=== PATIENT | female | born 2000 | race Caucasian/White ===

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

== ENCOUNTER 2022-04-09 14:51 | Emergency (ER) | payer MEDICAID ==
[2022-04-09] MEDS ORDERED: Ketorolac 30 MG/ML SDV IVPUSH ONE (15:27)
[2022-04-09] MEDS ORDERED: Sodium Chloride 0.9% 1,000 ML IV ONE (15:27)
[2022-04-09] MEDS ORDERED: Sodium Chloride 0.9% 10 ML Syringe FLUSH PRN (15:27)
[2022-04-09] MEDS ORDERED: Sodium Chloride 0.9% 2.5 ML Syringe FLUSH PRN (15:27)
[2022-04-09] MEDS ORDERED: Acetaminophen 500 MG Tab PO ONE (15:27)
[2022-04-09 16:00] LABS: BLOOD UREA NITROGEN,BUN 9 mg/dL (7.0-18.0); CARBON DIOXIDE,CO2 23.8 mmol/L (21.0-32.0); CHLORIDE,CL 93 mmol/L (98-107); GLUCOSE RANDOM 88 mg/dL (74-106); POTASSIUM,K 3.6 mmol/L (3.5-5.1); SODIUM,NA 131 mmol/L (136-145)
[2022-04-09] MEDS ORDERED: cefTRIAXone 1 GM in Sodium Chloride 0.9% 50 ML IV ONE (16:46)
[2022-04-09] MEDS ORDERED: Azithromycin 250 MG Tab PO ONE (16:46)
== END 2022-04-09 17:44 | disposition home or self-care (01) ==
LOC: MW.ED 14:51
DX: J18.9 Pneumonia, unspecified organism (principal)
CPT/HCPCS: 36415; 71046; 80053; 81003; 81025; 83605; 85025; 87040; 93005; 96365; 96375; 99284; A9270; J0696; J1885; J3490; J7030

== ENCOUNTER 2022-10-21 17:35 | Emergency (ER) | payer MEDICAID ==
[2022-10-21] MEDS ORDERED: Ondansetron 4 MG/2 ML SDV IVPUSH ONE (18:19)
[2022-10-21] MEDS ORDERED: Sodium Chloride 0.9% 2.5 ML Syringe FLUSH PRN (18:19)
[2022-10-21] MEDS ORDERED: Sodium Chloride 0.9% 1,000 ML IV ONE (18:19)
[2022-10-21] MEDS ORDERED: Sodium Chloride 0.9% 10 ML Syringe FLUSH PRN (18:19)
[2022-10-21] MEDS ORDERED: Ketorolac 30 MG/ML SDV IVPUSH ONE (19:12)
[2022-10-21 19:20] LABS: CARBON DIOXIDE,CO2 27.7 mmol/L (21.0-32.0); POTASSIUM,K 3.7 mmol/L (3.5-5.1)
[2022-10-21] MEDS ORDERED: Iopamidol 755 MG/ML 500 ML Multipack Bottle IVPUSH STA (19:59)
[2022-10-21] MEDS ORDERED: Acetaminophen 325 MG Tab PO ONE (20:56)
== END 2022-10-21 22:40 | disposition home or self-care (01) ==
LOC: MW.ED 17:35
DX: N83.201 Unspecified ovarian cyst, right side (principal); Z20.822 Contact with and (suspected) exposure to COVID-19
CPT/HCPCS: 36415; 74177; 76830; 80053; 81003; 81025; 83690; 85025; 87635; 96361; 96374; 96375; 99284; A9270; J1885; J2405; J3490; J7030; Q9967; U0002

== ENCOUNTER 2023-09-15 16:46 | Emergency (ER) | payer MEDICAID ==
[2023-09-15 17:10] LABS: BASOPHILS ABSOLUTE AUTO 0.03 K/uL (0.00-0.20); BASOPHILS PERCENT AUTO 0.7 % (0.0-1.0); EOSINOPHILS ABSOLUTE AUTO 0.01 K/uL (0.00-0.45); EOSINOPHILS PERCENT AUTO 0.2 % (0.0-6.0); HEMATOCRIT 34.8 % (37.0-47.0); HEMOGLOBIN 11.5 g/dL (12.0-16.0); IMMATURE GRAN ABSOLUTE AUTO 0.01 K/uL (0.00-0.05); IMMATURE GRAN PERCENT AUTO 0.2 % (0.0-0.4); LYMPHOCYTES ABSOLUTE AUTO 1.37 K/uL (1.00-4.80); LYMPHOCYTES PERCENT AUTO 33.8 % (24.0-44.0); MEAN CORPUSCULAR HEMOGLOBIN 26.6 pg (28.0-32.0); MEAN CORPUSCULAR VOLUME 80.4 fL (83.0-99.0); MEAN PLATELET VOLUME 10.3 fL (9.4-12.3); MONOCYTES ABSOLUTE AUTO 0.28 K/uL (0.00-0.80); MONOCYTES PERCENT AUTO 6.9 % (0.0-8.0); NEUTROPHILS ABSOLUTE AUTO 2.35 K/uL (1.80-7.70); NEUTROPHILS PERCENT AUTO 58.2 % (41.0-71.0); PLATELET COUNT,PLT 219 K/uL (150-400); RED BLOOD CELL COUNT 4.33 M/uL (4.10-5.30); WHITE BLOOD CELL COUNT,WBC 4.05 K/uL (3.9-11.3)
[2023-09-15 17:22] LABS: A/G RATIO 1.1 (0.9-1.6); ALANINE AMINOTRANSFERASE,ALT 27 IU/L (14-63); ALBUMIN 4.2 g/dL (3.4-5.0); ALKALINE PHOSPHATASE 57 U/L (46-116); ASPARTATE AMNIOTRANSFERASE,AST 16 IU/L (15-37); BILIRUBIN TOTAL 0.3 mg/dL (0.2-1.0); BLOOD UREA NITROGEN,BUN 10 mg/dL (7.0-18.0); CALCIUM 8.8 mg/dL (8.5-10.1); CARBON DIOXIDE,CO2 24.9 mmol/L (21.0-32.0); CHLORIDE,CL 103 mmol/L (98-107); CREATININE 0.9 mg/dL (0.6-1.0); EST CRCL DRUG DOSING (CG) 94.44 mL/min; GLUCOSE RANDOM 103 mg/dL (74-106); POTASSIUM,K 3.5 mmol/L (3.5-5.1); PROTEIN TOTAL,TP 7.9 g/dL (6.4-8.2); SODIUM,NA 137 mmol/L (136-145)
[2023-09-15 17:23] LABS: ESTIMATED GFR 94 mL/min (>60)
[2023-09-15 18:54] LABS: APPEARANCE,URINE CLEAR; BILIRUBIN,URINE NEGATIVE (NEGATIVE); COLOR,URINE YELLOW; GLUCOSE,URINE NEGATIVE (NEGATIVE); KETONES,URINE NEGATIVE (NEGATIVE); LEUKOCYTE ESTERASE,URINE NEGATIVE (NEGATIVE); NITRITE,URINE NEGATIVE (NEGATIVE); OCCULT BLOOD,URINE NEGATIVE (NEGATIVE); PROTEIN,URINE NEGATIVE (NEGATIVE); UROBILINOGEN,URINE 0.2 EU/dL (<2.0)
== END 2023-09-15 19:20 | disposition home or self-care (01) ==
LOC: MW.ED 16:46
DX: R00.2 Palpitations (principal); R07.89 Other chest pain; Z86.16 Personal history of COVID-19
CPT/HCPCS: 36415; 71045; 71045-26; 80053; 81003; 84484; 85025; 93005; 93010; 99283; 99285

== ENCOUNTER 2024-06-19 21:40 | Emergency (ER) | payer BC ==
[2024-06-19] MEDS: Sodium Chloride 0.9% 1,000 ML IV STA ×2 (22:09→23:16)
[2024-06-19] MEDS: Ondansetron 4 MG/2 ML SDV IVPUSH STA (22:09)
[2024-06-19 22:18] LABS: APPEARANCE,URINE CLEAR; BILIRUBIN,URINE NEGATIVE (NEGATIVE); COLOR,URINE YELLOW; GLUCOSE,URINE NEGATIVE (NEGATIVE); KETONES,URINE TRACE mg/dL (NEGATIVE); LEUKOCYTE ESTERASE,URINE NEGATIVE (NEGATIVE); NITRITE,URINE NEGATIVE (NEGATIVE); OCCULT BLOOD,URINE NEGATIVE (NEGATIVE); PROTEIN,URINE TRACE mg/dL (NEGATIVE)
[2024-06-19 22:20] LABS: BASOPHILS ABSOLUTE AUTO 0.01 K/uL (0.00-0.20); BASOPHILS PERCENT AUTO 0.2 % (0.0-1.0); EOSINOPHILS ABSOLUTE AUTO 0.01 K/uL (0.00-0.45); EOSINOPHILS PERCENT AUTO 0.2 % (0.0-6.0); HEMATOCRIT 35.5 % (37.0-47.0); HEMOGLOBIN 11.9 g/dL (12.0-16.0); LYMPHOCYTES ABSOLUTE AUTO 0.92 K/uL (1.00-4.80); LYMPHOCYTES PERCENT AUTO 16.3 % (24.0-44.0); MEAN CORPUSCULAR HGB CONC 33.5 g/dL (32.0-36.0); MEAN CORPUSCULAR VOLUME 77.7 fL (83.0-99.0); MEAN PLATELET VOLUME 10.1 fL (9.4-12.3); MONOCYTES ABSOLUTE AUTO 0.26 K/uL (0.00-0.80); MONOCYTES PERCENT AUTO 4.6 % (0.0-8.0); NEUTROPHILS ABSOLUTE AUTO 4.43 K/uL (1.80-7.70); NEUTROPHILS PERCENT AUTO 78.7 % (41.0-71.0); PLATELET COUNT,PLT 253 K/uL (150-400); RED BLOOD CELL COUNT 4.57 M/uL (4.10-5.30); WHITE BLOOD CELL COUNT,WBC 5.63 K/uL (3.9-11.3)
[2024-06-19 22:43] LABS: ALBUMIN 3.7 g/dL (3.4-5.0); BILIRUBIN TOTAL 0.3 mg/dL (0.2-1.0); CARBON DIOXIDE,CO2 20.4 mmol/L (21.0-32.0); CREATININE 0.7 mg/dL (0.6-1.0); EST CRCL DRUG DOSING (CG) 122.89 mL/min; POTASSIUM,K 3.6 mmol/L (3.5-5.1); PROTEIN TOTAL,TP 7.3 g/dL (6.4-8.2)
[2024-06-19 22:51] LABS: TSH ULTRASENSITIVE 0.94 uIU/mL (0.36-3.74)
[2024-06-19 22:59] LABS: BACTERIA,URINE FEW (NEGATIVE); EPITHELIAL CELLS,URINE RARE (NONE-FEW); MUCUS,URINE FEW (NONE-MOD); RBC,URINE 0-1 (0-2/HPF); WBC,URINE 0-2 (0-5/HPF)
[2024-06-19 23:18] LABS: D-DIMER QUANTITATIVE 0.38 mg/L FEU (0.00-0.50); INR 0.99 (0.86-1.11); PTT,PARTIAL THROMBOPLSTIN TIME 27.2 SEC (23.9-30.7)
[2024-06-20] MEDS: Magnesium Sulfate/Water 2 GM in Premix Bag 1 BAG IV STA (01:38)
== END 2024-06-20 03:20 ==
LOC: MW.ED 21:40
DX: O99.411 Diseases of the circulatory system complicating pregnancy, first trimester (principal); I21.A1 Myocardial infarction type 2; O99.281 Endocrine, nutritional and metabolic diseases complicating pregnancy, first trimester; E83.42 Hypomagnesemia; Z86.16 Personal history of COVID-19; Z75.8 Other problems related to medical facilities and other health care; Z3A.13 13 weeks gestation of pregnancy
CPT/HCPCS: 36415; 80053; 81001; 81025; 83735; 84443; 84484; 85025; 85379; 85610; 85730; 93005; 96361; 96365; 96375; 99285; J2405; J3475; J7030; 93010

== ENCOUNTER 2024-07-13 11:22 | Emergency (ER) | payer BC ==
[2024-07-13 11:45] LABS: BASOPHILS ABSOLUTE AUTO 0.01 K/uL (0.00-0.20); BASOPHILS PERCENT AUTO 0.2 % (0.0-1.0); EOSINOPHILS ABSOLUTE AUTO 0.02 K/uL (0.00-0.45); EOSINOPHILS PERCENT AUTO 0.4 % (0.0-6.0); HEMATOCRIT 32.5 % (37.0-47.0); HEMOGLOBIN 10.7 g/dL (12.0-16.0); IMMATURE GRAN ABSOLUTE AUTO 0.01 K/uL (0.00-0.05); IMMATURE GRAN PERCENT AUTO 0.2 % (0.0-0.4); LYMPHOCYTES ABSOLUTE AUTO 0.74 K/uL (1.00-4.80); MEAN CORPUSCULAR HEMOGLOBIN 26.2 pg (28.0-32.0); MEAN CORPUSCULAR HGB CONC 32.9 g/dL (32.0-36.0); MEAN CORPUSCULAR VOLUME 79.7 fL (83.0-99.0); MEAN PLATELET VOLUME 9.5 fL (9.4-12.3); MONOCYTES ABSOLUTE AUTO 0.31 K/uL (0.00-0.80); MONOCYTES PERCENT AUTO 5.9 % (0.0-8.0); NEUTROPHILS ABSOLUTE AUTO 4.18 K/uL (1.80-7.70); NEUTROPHILS PERCENT AUTO 79.3 % (41.0-71.0); PLATELET COUNT,PLT 230 K/uL (150-400); RED BLOOD CELL COUNT 4.08 M/uL (4.10-5.30); WHITE BLOOD CELL COUNT,WBC 5.27 K/uL (3.9-11.3)
[2024-07-13] MEDS: Sodium Chloride 0.9% 1,000 ML IV STA (11:47)
[2024-07-13 11:57] LABS: INR 0.97 (0.86-1.11); PTT,PARTIAL THROMBOPLSTIN TIME 25.7 SEC (23.9-30.7)
[2024-07-13 12:15] LABS: A/G RATIO 0.9 (0.9-1.6); ALBUMIN 3.2 g/dL (3.4-5.0); BILIRUBIN TOTAL 0.3 mg/dL (0.2-1.0); CALCIUM 8.6 mg/dL (8.5-10.1); CARBON DIOXIDE,CO2 24.7 mmol/L (21.0-32.0); CREATININE 0.7 mg/dL (0.6-1.0); EST CRCL DRUG DOSING (CG) 123.63 mL/min; PROTEIN TOTAL,TP 6.8 g/dL (6.4-8.2)
[2024-07-13 12:26] LABS: MAGNESIUM 1.6 mg/dL (1.8-2.4); PRO B-TYPE NATRIUR PEPT,BNPPRO 77 pg/mL (0-125); TSH ULTRASENSITIVE 0.96 uIU/mL (0.36-3.74)
[2024-07-13] MEDS: Magnesium Sulfate/Water 2 GM in Premix Bag 1 BAG IV STA (13:04)
[2024-07-13 13:10] LABS: APPEARANCE,URINE CLEAR; BILIRUBIN,URINE NEGATIVE (NEGATIVE); COLOR,URINE YELLOW; GLUCOSE,URINE NEGATIVE (NEGATIVE); KETONES,URINE NEGATIVE (NEGATIVE); LEUKOCYTE ESTERASE,URINE NEGATIVE (NEGATIVE); NITRITE,URINE NEGATIVE (NEGATIVE); OCCULT BLOOD,URINE NEGATIVE (NEGATIVE); PROTEIN,URINE NEGATIVE (NEGATIVE); UROBILINOGEN,URINE 0.2 EU/dL (<2.0)
[2024-07-13 13:42] LABS: CORONAVIRUS COVID-19 NAA NEGATIVE (NEGATIVE); INFLUENZA A NAA NEGATIVE (NEGATIVE); INFLUENZA B NAA NEGATIVE (NEGATIVE); RESPIRATORY SYNCYTIAL VIR NAA NEGATIVE (NEGATIVE)
== END 2024-07-13 14:09 | disposition home or self-care (01) ==
LOC: MW.ED 11:22
DX: O99.891 Other specified diseases and conditions complicating pregnancy (principal); O99.282 Endocrine, nutritional and metabolic diseases complicating pregnancy, second trimester; R00.2 Palpitations; R10.31 Right lower quadrant pain; E83.42 Hypomagnesemia; Z3A.16 16 weeks gestation of pregnancy; Z86.16 Personal history of COVID-19; Z75.8 Other problems related to medical facilities and other health care
CPT/HCPCS: 0241U; 36415; 76810; 80053; 81003; 83735; 83880; 84443; 84484; 85025; 85610; 85730; 93005; 96361; 96365; 99285; J3475; J7030; 93010; 99283

== ENCOUNTER 2024-10-22 17:41 | Emergency (ER) | payer SELFPAY ==
[2024-10-22 18:04] LABS: BASOPHILS ABSOLUTE AUTO 0.01 K/uL (0.00-0.20); BASOPHILS PERCENT AUTO 0.1 % (0.0-1.0); EOSINOPHILS ABSOLUTE AUTO 0.02 K/uL (0.00-0.45); EOSINOPHILS PERCENT AUTO 0.3 % (0.0-6.0); HEMATOCRIT 29.6 % (37.0-47.0); IMMATURE GRAN ABSOLUTE AUTO 0.02 K/uL (0.00-0.05); IMMATURE GRAN PERCENT AUTO 0.3 % (0.0-0.4); LYMPHOCYTES ABSOLUTE AUTO 0.84 K/uL (1.00-4.80); LYMPHOCYTES PERCENT AUTO 12.1 % (24.0-44.0); MEAN CORPUSCULAR HEMOGLOBIN 21.7 pg (28.0-32.0); MEAN CORPUSCULAR HGB CONC 30.4 g/dL (32.0-36.0); MEAN CORPUSCULAR VOLUME 71.3 fL (83.0-99.0); MEAN PLATELET VOLUME 9.7 fL (9.4-12.3); MONOCYTES ABSOLUTE AUTO 0.46 K/uL (0.00-0.80); MONOCYTES PERCENT AUTO 6.6 % (0.0-8.0); NEUTROPHILS PERCENT AUTO 80.6 % (41.0-71.0); PLATELET COUNT,PLT 259 K/uL (150-400); RED BLOOD CELL COUNT 4.15 M/uL (4.10-5.30); WHITE BLOOD CELL COUNT,WBC 6.95 K/uL (3.9-11.3)
[2024-10-22 18:20] LABS: CALCIUM 8.8 mg/dL (8.5-10.1); CARBON DIOXIDE,CO2 25.7 mmol/L (21.0-32.0); CREATININE 0.7 mg/dL (0.6-1.0); EST CRCL DRUG DOSING (CG) 123.63 mL/min; MAGNESIUM 1.7 mg/dL (1.8-2.4); POTASSIUM,K 4.2 mmol/L (3.5-5.1)
[2024-10-22] MEDS: Magnesium Sulfate/Water Premix 2 GM in Premix Bag 1 BAG IV ONE (18:41)
== END 2024-10-22 19:40 | disposition home or self-care (01) ==
LOC: MW.ED 17:41
DX: O99.891 Other specified diseases and conditions complicating pregnancy (principal); R00.2 Palpitations; Z79.899 Other long term (current) drug therapy; Z3A.31 31 weeks gestation of pregnancy
CPT/HCPCS: 36415; 80048; 83735; 85025; 96365; 99284; J3475

== ENCOUNTER 2024-12-18 04:26 | Inpatient (IN) | payer BC ==
[2024-12-18] MEDS ORDERED: Tranexamic Acid in NACL,ISO-OS 1,000 MG in Premix Bag 1 BAG IV PRN (17:47)
[2024-12-18] MEDS ORDERED: Ondansetron 4 MG/2 ML SDV IVPUSH PRN (17:47)
[2024-12-18] MEDS ORDERED: Misoprostol 100 MCG Tab RECTAL PRN (17:47)
[2024-12-18] MEDS ORDERED: Butorphanol 2 MG/ML SDV IVPUSH PRN (17:47)
[2024-12-18] MEDS ORDERED: Sodium Chloride 0.9% 2.5 ML Syringe FLUSH PRN (17:47)
[2024-12-18] MEDS ORDERED: Carboprost Tromethamine 250 MCG/1 mL Vial IM PRN (17:47)
[2024-12-18] MEDS ORDERED: Sodium Chloride 0.9% 10 ML Syringe FLUSH PRN (17:47)
[2024-12-18] MEDS ORDERED: Sodium Chloride 0.9% 20 ML SDV IV PRN (17:47)
[2024-12-18] MEDS ORDERED: Water For Irrigation,Sterile 1,000 ML Container IRR PRN (17:47)
[2024-12-18] MEDS ORDERED: Methylergonovine 0.2 MG/1 ML Amp IM PRN (17:47)
[2024-12-18] MEDS ORDERED: Lidocaine 1% 50 ML MDV INJECT PRN (17:47)
[2024-12-18] MEDS ORDERED: Oxytocin/0.9 % Sodium Chloride 30 UNIT/500 ML BAG IV SCH ×2 (18:00)
[2024-12-18] MEDS: Lactated Ringers 1,000 ML IV SCH (18:32)
[2024-12-18] MEDS: Ampicillin 2 GM in Sodium Chloride 0.9% 100 ML IV ONE (18:32)
[2024-12-18 18:55] LABS: HEMATOCRIT 37.1 % (37.0-47.0); HEMOGLOBIN 12.2 g/dL (12.0-16.0); MEAN CORPUSCULAR HEMOGLOBIN 27.6 pg (28.0-32.0); MEAN CORPUSCULAR HGB CONC 32.9 g/dL (32.0-36.0); MEAN CORPUSCULAR VOLUME 83.9 fL (83.0-99.0); MEAN PLATELET VOLUME 9.6 fL (9.4-12.3); PLATELET COUNT,PLT 237 K/uL (150-400); RED BLOOD CELL COUNT 4.42 M/uL (4.10-5.30); WHITE BLOOD CELL COUNT,WBC 4.59 K/uL (3.9-11.3)
[2024-12-18] MEDS: Ampicillin 1 GM in Sodium Chloride 0.9% 50 ML IV SCH (22:41)
[2024-12-18] MEDS: Misoprostol 25 MCG (1/4 of 100 MCG) Tab VAG PRN (22:54)
[2024-12-18] MEDS: Misoprostol 25 MCG (1/4 of 100 MCG) Tab PO PRN (22:54)
[2024-12-19] MEDS ORDERED: Bupivacaine 0.5% 10 ML SDV ONE ×2 (01:21→03:48)
[2024-12-19] MEDS ORDERED: Phenylephrine HCl In 0.9% NaCl 1 MG/10 ML Syringe ONE ×3 (01:21→04:43)
[2024-12-19] MEDS: Ropivacaine HCl/PF 200 ML ONE (01:40)
[2024-12-19] MEDS ORDERED: Bupivacaine 0.5% 10 ML SDV INJECT ONE (01:51)
[2024-12-19] MEDS ORDERED: Phenylephrine HCl In 0.9% NaCl 1 MG/10 ML Syringe IVPUSH PRN ×2 (01:51→05:38)
[2024-12-19] MEDS ORDERED: ePHEDrine 50 MG/ML SDV IVPUSH PRN (01:51)
[2024-12-19] MEDS ORDERED: dexmedeTOMIDine HCl 200 MCG/2 ML SDV EPIDUR SCH (02:00)
[2024-12-19] MEDS ORDERED: Ropivacaine HCl/PF 400 MG in Premix Bag 1 BAG EPIDUR SCH (02:00)
[2024-12-19] MEDS: Terbutaline 1 MG/ML SDV SUBCUT PRN (02:48)
[2024-12-19] MEDS: Labetalol 100 MG/20 ML MDV IVPUSH STA (03:02)
[2024-12-19] MEDS ORDERED: fentaNYL 100 MCG/2 ML SDV ONE (03:47)
[2024-12-19] MEDS ORDERED: Bupivacaine 0.25% 30 ML SDV ONE (03:47)
[2024-12-19] MEDS ORDERED: Morphine PF 10 MG/10 ML SDV ONE (03:47)
[2024-12-19] MEDS ORDERED: Ropivacaine 0.5% 5 MG/ML 30 ML SDV ONE ×2 (03:47→04:56)
[2024-12-19] MEDS ORDERED: ceFAZolin 1 GM Vial ONE (03:47)
[2024-12-19] MEDS ORDERED: Ondansetron 4 MG/2 ML SDV ONE (03:47)
[2024-12-19] MEDS ORDERED: Ketorolac 30 MG/ML SDV ONE (03:47)
[2024-12-19] MEDS ORDERED: Oxytocin 10 Units/1 ML SDV ONE (03:47)
[2024-12-19] MEDS ORDERED: EPINEPHrine 1 MG/1 ML Amp ONE (03:47)
[2024-12-19] MEDS ORDERED: Lidocaine 2% 5 ML SDV ONE (03:48)
[2024-12-19] MEDS ORDERED: Azithromycin 500 MG Vial ONE (03:50)
[2024-12-19] MEDS ORDERED: Sodium Chloride 0.9% 10 ML Syringe FLUSH PRN ×2 (03:53→06:01)
[2024-12-19] MEDS ORDERED: ceFAZolin 2 GM in Sodium Chloride 0.9% 50 ML IV ONE (03:53)
[2024-12-19] MEDS ORDERED: Sodium Chloride 0.9% 2.5 ML Syringe FLUSH PRN ×2 (03:53→06:01)
[2024-12-19] MEDS ORDERED: Citric Acid/Sodium Citrate Solution 30 ML Cup PO ONE (03:53)
[2024-12-19] MEDS ORDERED: Azithromycin 500 MG in Sodium Chloride 0.9% 250 ML IV ONE (03:53)
[2024-12-19] MEDS ORDERED: Sodium Chloride 0.9% 20 ML SDV IV PRN (03:53)
[2024-12-19] MEDS ORDERED: Lactated Ringers 1,000 ML IV SCH (04:00)
[2024-12-19] MEDS ORDERED: Oxytocin/0.9 % Sodium Chloride 30 UNIT/500 ML BAG IV SCH ×2 (04:00→06:15)
[2024-12-19] MEDS ORDERED: Midazolam 1 MG/ML 2 ML SDV ONE (04:33)
[2024-12-19] MEDS ORDERED: Albuterol 0.083% 2.5 MG/3 ML Neb Soln NEB PRN (05:38)
[2024-12-19] MEDS ORDERED: Morphine 2 MG/ML SYRINGE IVPUSH PRN (05:38)
[2024-12-19] MEDS ORDERED: Nalbuphine 10 MG/1 ML Vial IVPUSH PRN (05:38)
[2024-12-19] MEDS ORDERED: Ondansetron 4 MG/2 ML SDV IVPUSH PRN ×3 (05:38→06:01)
[2024-12-19] MEDS ORDERED: Naloxone 0.4 MG/ML SDV IVPUSH PRN (05:38)
[2024-12-19] MEDS ORDERED: Acetaminophen/oxyCODONE 325-5 MG Tab PO PRN (05:38)
[2024-12-19] MEDS ORDERED: fentaNYL 100 MCG/2 ML SDV IVPUSH PRN (05:38)
[2024-12-19] MEDS ORDERED: Metoclopramide 10 MG/2 ML SDV IVPUSH PRN (05:38)
[2024-12-19] MEDS ORDERED: fentaNYL 50 MCG/ML SDV IVPUSH PRN (05:38)
[2024-12-19] MEDS ORDERED: HYDROmorphone 1 MG/ML Syringe IVPUSH PRN (05:38)
[2024-12-19] MEDS ORDERED: diphenhydrAMINE 50 MG/ML SDV IVPUSH PRN (05:38)
[2024-12-19] MEDS ORDERED: Misoprostol 200 MCG Tab RECTAL PRN (06:01)
[2024-12-19] MEDS ORDERED: Diphtheria,Pertussis(Acell),Tetanus Vaccine 0.5 ML Syringe IM ONE (06:01)
[2024-12-19] MEDS ORDERED: Measles, Mumps & Rubella Vaccine 0.5 ML SDV SUBCUT ONE (06:01)
[2024-12-19] MEDS ORDERED: Tranexamic Acid in NACL,ISO-OS 1,000 MG in Premix Bag 1 BAG IV ONE (06:01)
[2024-12-19] MEDS ORDERED: Carboprost Tromethamine 250 MCG/1 mL Vial IM PRN (06:01)
[2024-12-19] MEDS ORDERED: Ketorolac 30 MG/ML SDV IVPUSH SCH (06:15)
[2024-12-19 06:26] LABS: PH,UMBILICAL ARTERIAL 7.045 (7.18-7.38)
[2024-12-19 06:27] LABS: PH,UMBILICAL VENOUS 7.096 (7.25-7.45)
[2024-12-19] MEDS: Acetaminophen 1,000 MG in Premix Bag 1 BAG IV SCH (06:32)
[2024-12-19 06:49] LABS: HEMATOCRIT 32.1 % (37.0-47.0); HEMOGLOBIN 10.5 g/dL (12.0-16.0); MEAN CORPUSCULAR HEMOGLOBIN 27.7 pg (28.0-32.0); MEAN CORPUSCULAR HGB CONC 32.7 g/dL (32.0-36.0); MEAN CORPUSCULAR VOLUME 84.7 fL (83.0-99.0); MEAN PLATELET VOLUME 9.8 fL (9.4-12.3); PLATELET COUNT,PLT 223 K/uL (150-400); RED BLOOD CELL COUNT 3.79 M/uL (4.10-5.30)
[2024-12-19] MEDS: Metoprolol Succinate 25 MG Tab.ER PO SCH (08:10)
[2024-12-19] MEDS: Docusate Sodium 100 MG Cap PO SCH (08:15)
[2024-12-19 08:31] LABS: INR 0.96 (0.86-1.11)
[2024-12-19] MEDS: Magnesium Oxide 400 MG Tab PO SCH (10:20)
[2024-12-19] MEDS: Ketorolac 30 MG/ML SDV IVPUSH SCH (10:20)
[2024-12-19] MEDS: oxyCODONE 5 MG Tab PO PRN (13:11)
[2024-12-20 06:00] LABS: BASOPHILS ABSOLUTE AUTO 0.01 K/uL (0.00-0.20); BASOPHILS PERCENT AUTO 0.1 % (0.0-1.0); EOSINOPHILS ABSOLUTE AUTO 0.02 K/uL (0.00-0.45); EOSINOPHILS PERCENT AUTO 0.3 % (0.0-6.0); HEMATOCRIT 23.4 % (37.0-47.0); HEMOGLOBIN 7.7 g/dL (12.0-16.0); IMMATURE GRAN ABSOLUTE AUTO 0.02 K/uL (0.00-0.05); IMMATURE GRAN PERCENT AUTO 0.3 % (0.0-0.4); LYMPHOCYTES ABSOLUTE AUTO 0.96 K/uL (1.00-4.80); LYMPHOCYTES PERCENT AUTO 13.7 % (24.0-44.0); MEAN CORPUSCULAR HGB CONC 32.9 g/dL (32.0-36.0); MEAN CORPUSCULAR VOLUME 85.1 fL (83.0-99.0); MEAN PLATELET VOLUME 10.1 fL (9.4-12.3); MONOCYTES ABSOLUTE AUTO 0.43 K/uL (0.00-0.80); MONOCYTES PERCENT AUTO 6.1 % (0.0-8.0); NEUTROPHILS ABSOLUTE AUTO 5.59 K/uL (1.80-7.70); NEUTROPHILS PERCENT AUTO 79.5 % (41.0-71.0); PLATELET COUNT,PLT 196 K/uL (150-400); WHITE BLOOD CELL COUNT,WBC 7.03 K/uL (3.9-11.3)
[2024-12-20] MEDS ORDERED: oxyCODONE 5 MG Tab PO PRN (06:01)
[2024-12-20 06:36] LABS: RED BLOOD CELL COUNT 2.75 M/uL (4.10-5.30)
[2024-12-20] MEDS: Ibuprofen 800 MG Tab PO SCH (10:06)
[2024-12-20 12:01] LABS: HEMATOCRIT 22.9 % (37.0-47.0); HEMOGLOBIN 7.6 g/dL (12.0-16.0); MEAN CORPUSCULAR HEMOGLOBIN 28.6 pg (28.0-32.0); MEAN CORPUSCULAR HGB CONC 33.2 g/dL (32.0-36.0); MEAN CORPUSCULAR VOLUME 86.1 fL (83.0-99.0); MEAN PLATELET VOLUME 10.1 fL (9.4-12.3); PLATELET COUNT,PLT 198 K/uL (150-400); WHITE BLOOD CELL COUNT,WBC 6.17 K/uL (3.9-11.3)
[2024-12-20 12:57] LABS: RED BLOOD CELL COUNT 2.66 M/uL (4.10-5.30)
[2024-12-20] MEDS: Acetaminophen 500 MG Tab PO SCH (16:39)
[2024-12-20] MEDS: Lanolin 100% Cream 7 GM Tube TOP PRN (22:39)
[2024-12-21] MEDS: Acetaminophen 500 MG Tab PO SCH (06:00)
[2024-12-21 06:35] LABS: BASOPHILS ABSOLUTE AUTO 0.01 K/uL (0.00-0.20); BASOPHILS PERCENT AUTO 0.2 % (0.0-1.0); EOSINOPHILS ABSOLUTE AUTO 0.08 K/uL (0.00-0.45); EOSINOPHILS PERCENT AUTO 1.4 % (0.0-6.0); HEMATOCRIT 27.2 % (37.0-47.0); HEMOGLOBIN 8.7 g/dL (12.0-16.0); IMMATURE GRAN ABSOLUTE AUTO 0.03 K/uL (0.00-0.05); IMMATURE GRAN PERCENT AUTO 0.5 % (0.0-0.4); LYMPHOCYTES PERCENT AUTO 23.5 % (24.0-44.0); MEAN CORPUSCULAR HEMOGLOBIN 27.8 pg (28.0-32.0); MEAN CORPUSCULAR VOLUME 86.9 fL (83.0-99.0); MONOCYTES ABSOLUTE AUTO 0.32 K/uL (0.00-0.80); MONOCYTES PERCENT AUTO 5.8 % (0.0-8.0); NEUTROPHILS PERCENT AUTO 68.6 % (41.0-71.0); PLATELET COUNT,PLT 195 K/uL (150-400); RED BLOOD CELL COUNT 3.13 M/uL (4.10-5.30); WHITE BLOOD CELL COUNT,WBC 5.54 K/uL (3.9-11.3)
[2024-12-21] MEDS: Sodium Ferric Gluconate Cmplex 125 MG in Sodium Chloride 0.9% 100 ML IV SCH (11:46)
== END 2024-12-21 16:05 | disposition home or self-care (01) | DRG 540 ==
LOC: MW.OB 04:26 → OBSVTOIN 12-19 04:26 → MW.OB 12-19 08:26
PROVIDERS: ADMIT Obstetrics & Gynecology; ATTEND Obstetrics & Gynecology
PROC: 10D00Z1 Extraction of Products of Conception, Low, Open Approach (ICD-10-PCS; principal; 2024-12-19 04:00)
PROC: 30233S1 Transfusion of Nonautologous Globulin into Peripheral Vein, Percutaneous Approach (ICD-10-PCS; 2024-12-20)
PROC: 30233N1 Transfusion of Nonautologous Red Blood Cells into Peripheral Vein, Percutaneous Approach (ICD-10-PCS; 2024-12-20)
DX: O99.824 Streptococcus B carrier state complicating childbirth (principal); I47.10 Supraventricular tachycardia, unspecified; O36.0930 Maternal care for other rhesus isoimmunization, third trimester, not applicable or unspecified; O76 Abnormality in fetal heart rate and rhythm complicating labor and delivery; O99.42 Diseases of the circulatory system complicating childbirth; O69.1XX0 Labor and delivery complicated by cord around neck, with compression, not applicable or unspecified; O69.2XX0 Labor and delivery complicated by other cord entanglement, with compression, not applicable or unspecified; O26.813 Pregnancy related exhaustion and fatigue, third trimester; Z37.0 Single live birth; Z3A.39 39 weeks gestation of pregnancy
CPT/HCPCS: 36415; 36430; 59514; 74018; 74018-26; 76815; 76815-26; 82803; 84484; 85025; 85027; 85384; 85460; 85610; 86592; 86850; 86900; 86901; 86920; 93005; A9270-GY; J0131; J0171; J0290; J0456; J0665; J0690; J1100; J1885; J1920; J2250; J2274; J2371; J2405; J2590; J2791; J2795; J2916; J3010; J3490; J7120; P9016

== ENCOUNTER 2025-03-01 11:11 | Emergency (ER) | payer BC ==
[2025-03-01 11:41] LABS: APPEARANCE,URINE CLEAR; BILIRUBIN,URINE NEGATIVE (NEGATIVE); COLOR,URINE YELLOW; GLUCOSE,URINE NEGATIVE (NEGATIVE); KETONES,URINE NEGATIVE (NEGATIVE); LEUKOCYTE ESTERASE,URINE NEGATIVE (NEGATIVE); NITRITE,URINE NEGATIVE (NEGATIVE); OCCULT BLOOD,URINE NEGATIVE (NEGATIVE); PH,URINE 5.5 (5.0-8.0); PROTEIN,URINE NEGATIVE (NEGATIVE); UROBILINOGEN,URINE 0.2 EU/dL (<2.0)
[2025-03-01] MEDS: Sodium Chloride 0.9% 1,000 ML IV ONE (12:05)
[2025-03-01 12:09] LABS: BASOPHILS ABSOLUTE AUTO 0.03 K/uL (0.00-0.20); BASOPHILS PERCENT AUTO 0.9 % (0.0-1.0); EOSINOPHILS ABSOLUTE AUTO 0.23 K/uL (0.00-0.45); EOSINOPHILS PERCENT AUTO 7.1 % (0.0-6.0); HEMATOCRIT 36.6 % (37.0-47.0); HEMOGLOBIN 12.3 g/dL (12.0-16.0); IMMATURE GRAN ABSOLUTE AUTO 0.01 K/uL (0.00-0.05); IMMATURE GRAN PERCENT AUTO 0.3 % (0.0-0.4); LYMPHOCYTES ABSOLUTE AUTO 0.94 K/uL (1.00-4.80); LYMPHOCYTES PERCENT AUTO 29.2 % (24.0-44.0); MEAN CORPUSCULAR HEMOGLOBIN 29.4 pg (28.0-32.0); MEAN CORPUSCULAR HGB CONC 33.6 g/dL (32.0-36.0); MEAN CORPUSCULAR VOLUME 87.6 fL (83.0-99.0); MEAN PLATELET VOLUME 9.4 fL (9.4-12.3); MONOCYTES ABSOLUTE AUTO 0.25 K/uL (0.00-0.80); MONOCYTES PERCENT AUTO 7.8 % (0.0-8.0); NEUTROPHILS ABSOLUTE AUTO 1.76 K/uL (1.80-7.70); NEUTROPHILS PERCENT AUTO 54.7 % (41.0-71.0); PLATELET COUNT,PLT 234 K/uL (150-400); RED BLOOD CELL COUNT 4.18 M/uL (4.10-5.30); WHITE BLOOD CELL COUNT,WBC 3.22 K/uL (3.9-11.3)
[2025-03-01 13:01] LABS: A/G RATIO 1.2 (0.9-1.6); ALBUMIN 4.2 g/dL (3.4-5.0); BILIRUBIN TOTAL 0.3 mg/dL (0.2-1.0); CALCIUM 9.2 mg/dL (8.5-10.1); CARBON DIOXIDE,CO2 25.7 mmol/L (21.0-32.0); CREATININE 0.7 mg/dL (0.6-1.0); EST CRCL DRUG DOSING (CG) 122.59 mL/min; POTASSIUM,K 3.8 mmol/L (3.5-5.1); PROTEIN TOTAL,TP 7.7 g/dL (6.4-8.2); TSH ULTRASENSITIVE 0.67 uIU/mL (0.36-3.74)
[2025-03-01] MEDS: cefTRIAXone 1 GM in Sodium Chloride 0.9% 50 ML IV ONE (13:08)
[2025-03-01 13:23] LABS: CANDIDA DNA PROBE NEGATIVE (NEGATIVE); GARDNERELLA DNA PROBE NEGATIVE (NEGATIVE); TRICHOMONAS DNA PROBE NEGATIVE (NEGATIVE)
[2025-03-01 14:07] LABS: C. TRACHOMATIS BY PCR NOT DETECTED; N. GONORRHOEAE BY PCR NOT DETECTED
== END 2025-03-01 16:09 | disposition home or self-care (01) ==
LOC: MW.ED 11:11
DX: R10.2 Pelvic and perineal pain (principal); Z79.899 Other long term (current) drug therapy
CPT/HCPCS: 36415; 76830; 80053; 81003; 84443; 85025; 87480; 87491; 87510; 87591; 87660; 93005; 96361; 96365; 99285; J0696; J7030; 74177; 74177-26; 93010; 99284; Q9967

== ENCOUNTER 2025-06-05 18:58 | Emergency (ER) | payer BC ==
[2025-06-05] MEDS ORDERED: Sodium Chloride 0.9% 2.5 ML Syringe FLUSH PRN (19:10)
[2025-06-05] MEDS ORDERED: Sodium Chloride 0.9% 10 ML Syringe FLUSH PRN (19:10)
[2025-06-05 19:17] LABS: BASOPHILS ABSOLUTE AUTO 0.02 K/uL (0.00-0.20); BASOPHILS PERCENT AUTO 0.4 % (0.0-1.0); EOSINOPHILS ABSOLUTE AUTO 0.12 K/uL (0.00-0.45); EOSINOPHILS PERCENT AUTO 2.1 % (0.0-6.0); IMMATURE GRAN ABSOLUTE AUTO 0.01 K/uL (0.00-0.05); IMMATURE GRAN PERCENT AUTO 0.2 % (0.0-0.4); LYMPHOCYTES ABSOLUTE AUTO 0.35 K/uL (1.00-4.80); LYMPHOCYTES PERCENT AUTO 6.2 % (24.0-44.0); MEAN PLATELET VOLUME 9.4 fL (9.4-12.3); MONOCYTES ABSOLUTE AUTO 0.33 K/uL (0.00-0.80); MONOCYTES PERCENT AUTO 5.8 % (0.0-8.0); NEUTROPHILS ABSOLUTE AUTO 4.86 K/uL (1.80-7.70); NEUTROPHILS PERCENT AUTO 85.3 % (41.0-71.0); NRBC ABSOLUTE 0.00 K/uL (0.00-0.02); NRBC PERCENT 0.0 /100WBC (0.0-0.2); PLATELET COUNT,PLT 220 K/uL (150-400); RED BLOOD CELL COUNT 4.00 M/uL (4.10-5.30); WHITE BLOOD CELL COUNT,WBC 5.69 K/uL (3.9-11.3)
[2025-06-05] MEDS: Ondansetron 4 MG/2 ML SDV IVPUSH ONE (19:25)
[2025-06-05] MEDS: Clindamycin Phosphate in D5W 600 MG in Premix Bag 50 BAG IV ONE (19:30)
[2025-06-05 19:45] LABS: BLOOD UREA NITROGEN,BUN 9 mg/dL (7.0-18.0); CARBON DIOXIDE,CO2 24.2 mmol/L (21.0-32.0); CHLORIDE,CL 100 mmol/L (98-107); CREATININE 1.0 mg/dL (0.6-1.0); GLUCOSE RANDOM 89 mg/dL (74-106); POTASSIUM,K 3.4 mmol/L (3.5-5.1); SODIUM,NA 136 mmol/L (136-145)
[2025-06-05 19:54] LABS: ESTIMATED GFR 82 mL/min (>60)
[2025-06-05 20:06] LABS: APPEARANCE,URINE CLEAR; GLUCOSE,URINE NEGATIVE (NEGATIVE); OCCULT BLOOD,URINE NEGATIVE (NEGATIVE)
== END 2025-06-05 20:32 | disposition home or self-care (01) ==
LOC: MW.ED 18:58
DX: N61.0 Mastitis without abscess (principal)
CPT/HCPCS: 36415; 80048; 81003; 85025; 96365; 96375; 96376; 99284; A9270; J0736; J2270; J2405; J7050; 99283